=== PATIENT | male | born 1970 | race Caucasian/White ===

== ENCOUNTER 2017-07-15 18:00 | Emergency (ER) | payer OTHER ==
[~2017-07-15] VITALS: Ht 172.7 cm; Wt 111.0 kg
[2017-07-15 18:01] VITALS: BP 184/101; PULSE 93; RESP 18; TEMP 99.2; O2SAT 99
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
== END 2017-07-15 22:40 | disposition left against medical advice (07) ==
LOC: NED 18:00
DX: M54.9 Dorsalgia, unspecified (principal)
CPT/HCPCS: 99281